=== PATIENT | male | born 1985 | race Caucasian/White ===

== ENCOUNTER → 2018-12-17 13:02 | Outpatient (CLI) | payer OTHER, SELFPAY ==
--- NOTE | 2018-12-17 13:10 | RAD_ITS ---
STUDY: X-RAY CHEST REASON FOR EXAM: Male, 33 years old. Preemployment physical TECHNIQUE: PA and lateral views of the chest. COMPARISON: None. FINDINGS: The lungs are clear and expanded. There is no demonstrated pleural abnormality. Normal size heart. Normal mediastinum and [place]. Normal visualized pulmonary arteries. Normal visualized aortic arch and descending thoracic aorta. Normal visualized thoracic spine. Normal visualized ribs, clavicles, and shoulders. There is no demonstrated abnormality of the visualized soft tissue structures of the upper abdomen. RAD/Chest PA and Lateral IMPRESSION: Normal x-ray examination of the chest. Electronically Signed: Leonard Tompkins MD at 13:59 EDT , Service support ,
[2018-12-17 15:39] LABS: HIV - WCH Non-Reactive (Nonreactive)
[2018-12-18 04:08] LABS: HEPATITIS B SURFACE AG Negative (Negative)
[2018-12-18 08:24] LABS: Hep C Antibodies <0.1 s/co ratio (0.0-0.9); Hepatitis A IgM Antibody Negative (Negative)
== END ==
PROVIDERS: Family Provider Family Medicine; PCP Family Medicine; Referring Provider Family Medicine; Visit Provider Family Medicine
DX: Z02.1 Encounter for pre-employment examination (principal)
CPT/HCPCS: 36415; 71046; 86703; 86709; 86803; 86900; 87340

== ENCOUNTER → 2018-12-18 09:58 | Outpatient (CLI) | payer OTHER, SELFPAY ==
[2018-12-20 09:08] LABS: Giardia Lamblia, Stool EIA Negative (Negative)
== END ==
PROVIDERS: Family Provider Family Medicine; PCP Family Medicine; Referring Provider Family Medicine; Visit Provider Family Medicine
DX: Z02.1 Encounter for pre-employment examination (principal)
CPT/HCPCS: 87329; 87506

== ENCOUNTER → 2020-10-16 11:44 | Outpatient (CLI) | payer OTHER, SELFPAY | PROVIDERS: PCP Family Medicine; Referring Provider Family Medicine; Visit Provider Family Medicine | DX: Z00.00 Encounter for general adult medical examination without abnormal findings (principal) ==

== ENCOUNTER → 2021-09-17 18:08 | Outpatient (CLI) | payer OTHER, SELFPAY | PROVIDERS: PCP Family Medicine; Referring Provider Family Medicine; Visit Provider Family Medicine | DX: Z71.84 Encounter for health counseling related to travel (principal) | CPT/HCPCS: 87635; U0005; U0003 ==

== ENCOUNTER 2021-12-13 17:53 | Outpatient (CLI) | payer OTHER, SELFPAY | END 2021-12-13 23:59 | disposition home or self-care (01) | PROVIDERS: PCP Family Medicine; Visit Provider Family Medicine | DX: Z11.59 Encounter for screening for other viral diseases (principal) | CPT/HCPCS: 87635; U0003; U0005 ==

== ENCOUNTER 2021-12-27 17:58 | Outpatient (CLI) | payer OTHER, SELFPAY | END 2021-12-27 23:59 | disposition home or self-care (01) | PROVIDERS: PCP Family Medicine; Visit Provider Family Medicine | DX: Z71.84 Encounter for health counseling related to travel (principal) | CPT/HCPCS: 87635; U0003; U0005 ==

== ENCOUNTER → 2022-03-26 | Outpatient (CLI) | payer OTHER, SELFPAY | END | disposition home or self-care (01) | PROVIDERS: PCP Family Medicine; Visit Provider Family Medicine | DX: Z20.822 Contact with and (suspected) exposure to COVID-19 (principal) | CPT/HCPCS: 87635; U0003; U0005 ==

== ENCOUNTER → 2023-02-28 | Outpatient (CLI) | payer OTHER, SELFPAY ==
--- NOTE | 2023-02-28 10:45 | MRI_ITS ---
STUDY: MRI UPPER EXTREMITY RIGHT HUMERUS WITHOUT CONTRAST REASON FOR EXAM: Male, 37 years old. Right medial humeral painful mass. TECHNIQUE: Standardized fat and water weighted pulse sequences were obtained in all 3 orthogonal planes. Tissue clip marker is identified in the proximal and distal aspects of the mass. COMPARISON: None. FINDINGS: Normal subcutis adipose space. In the region of the placement of the tissue markers medially, there is no mass identified. Normal visualized muscles and fascia. Normal visualized neurovascular bundles. Normal humerus. MRI/Upper Ext/No Jt/ wo IMPRESSION: No abnormality of the right humerus without contrast. Electronically Signed: Juice Edouard MD at 14:11 EDT ,
== END | disposition home or self-care (01) ==
LOC: MRI 10:35
PROVIDERS: PCP Family Medicine; Referring Provider Family Medicine; Visit Provider Family Medicine
DX: R22.31 Localized swelling, mass and lump, right upper limb (principal)
CPT/HCPCS: 73218